=== PATIENT | male | born 1965 | race Caucasian/White ===

== ENCOUNTER 2019-12-05 12:00 | Inpatient (IN) | payer SELFPAY ==
[2019-12-05] MEDS ORDERED: NS 0.9% 1000 ML** 1,000 ML IV ONE (12:07)
--- NOTE | 2019-12-05 12:27 | ED ---
Complex/Multi-Sys Presentation - HPI Summary HPI Summary: Patient is a 54 y/o M presenting to [facility] via EMS with complaints of SOB, chills , syncope, bladder and bowel incontinence, and BLE numbness. He claims that SOB onset suddenly four days ago and has been constant since. He also claims that he has had multiple recent syncopal episodes, noting that they occur every time he stands up and ambulates a few steps. He states that he is currently cold in the room. Patient denies fever, cough, CP, and leg pain but does note some BLE numbness as well as bowel and bladder incontinence recently. PMHx of gout and HTN reported. Patient states that he was unable to take his medications due to insurance issues, which is also the reason why he waited this amount of time to come to ED. Patient states that he has three alcoholic beverages daily. Patient states that he does not get drunk daily and states that his last consumption of alcohol was last night. No Hx of COPD or asthma noted. EMS notes that the patient's HR has been fluctuating during transport. Home medications and allergies are reviewed. - History Of Current Complaint Chief Complaint: EDShortnessOfBreath Time Seen by Provider: 12/05/19 12:06 Hx Obtained From: Patient, EMS Onset/Duration: Lasting Days, Still Present Timing: Days Severity Currently: None - pain denied Associated Signs And Symptoms: Positive: Syncope, SOB, Other - positive - chills , bladder and bowel incontinence, BLE numbness; negative - leg pain. Negative: Cough, Chest Pain, Fever - Allergies/Home Medications Allergies/Adverse Reactions: Allergies Allergy/AdvReac Type Severity Reaction Status Date / Time No Known Allergies Allergy Verified 12/05/19 12:15 Home Medications: Home Medications NK [No Home Medications Reported] 12/05/19 [History Confirmed 12/05/19] PMH/Surg Hx/FS Hx/Imm Hx Cardiovascular History: Reports: Hx Hypertension Musculoskeletal History: Reports: Hx Gout Infectious Disease History: No Infectious Disease History: Denies: Hx Clostridium Difficile, Hx Hepatitis, Hx Human Immunodeficiency Virus (HIV), Hx of Known/Suspected MRSA, Hx Shingles, Hx Tuberculosis, Hx Known/ Suspected VRE, Traveled Outside the [place] in Last 30 Days - Family History Known Family History: Positive: Hypertension - Social History Alcohol Use: Daily Alcohol Amount: vodka -3 drinks a night (6oz each) Substance Use Type: Reports: None Smoking Status (MU): Light Every Day Tobacco Smoker Type: Cigarettes Amount Used/How Often: 1.5 ppd for 30 years Review of Systems Positive: Chills. Negative: Fever Negative: Chest Pain Positive: Shortness Of Breath. Negative: Cough Positive: incontinence - bladder and bowel Negative: Myalgia - leg pain Positive: Numbness - BLE , Syncope All Other Systems Reviewed And Are Negative: Yes Physical Exam - Summary Physical Exam Summary: VITAL SIGNS: Reviewed. GENERAL: Patient is a well-developed and nourished male who is lying comfortable in the stretcher. Patient is not in any acute respiratory distress. He is anxious, shaking, and dishevelled in appearance. HEAD AND FACE: No signs of trauma. No ecchymosis, hematomas or skull depressions. No sinus tenderness. EYES: PERRLA, EOMI x 2, No injected conjunctiva, no nystagmus. EARS: Hearing grossly intact. Ear canals and tympanic membranes are within normal limits. MOUTH: Oropharynx within normal limits. NECK: Supple, trachea is midline, no adenopathy, no JVD, no carotid bruit, no c- spine tenderness, neck with full ROM. CHEST: Symmetric, no tenderness at palpation. LUNGS: Decreased breath sounds bilaterally. No wheezing or crackles. CVS: Regular rate and rhythm, S1 and S2 present, no murmurs or gallops appreciated. ABDOMEN: Soft, non-tender. No signs of distention. No rebound, no guarding, and no masses palpated. Bowel sounds are normal. EXTREMITIES: FROM in all major joints, no edema, no cyanosis or clubbing. NEURO: Alert and oriented x 3. No acute neurological deficits. Speech is normal and follows commands. SKIN: Dry and warm. Triage Information Reviewed: Yes Vital Signs On Initial Exam: Initial Vitals Temp Pulse Resp BP Pulse Ox 97.4 F 91 28 114/76 99 12/05/19 12:03 12/05/19 12:12/05/19 12:12/05/19 12:12/05/19 12:03 Vital Signs Reviewed: Yes Procedures - Sedation Patient Received Moderate/Deep Sedation with Procedure: No Diagnostics - Vital Signs Vital Signs Temp Pulse Resp BP Pulse Ox 12/05/19 12: 97.4 F 91 28 114/76 99 - Laboratory Result Diagrams: 12/06/19 07:32 12/06/19 07:32 Lab Statement: Any lab studies that have been ordered have been reviewed, and results considered in the medical decision making process. - Radiology CXR Radiology Interpretation Completed By: Radiologist Summary of Radiographic Findings: IMPRESSION: NO ACTIVE CARDIOPULMONARY DISEASE. THIS REPORT WAS REVIEWED BY ED PHYSICIAN. - CT CHEST/THORAX CTA CT Interpretation Completed By: Radiologist Summary of CT Findings: IMPRESSION: Patchy areas of ground glass opacities in the right upper lobe, right middle. lobe and right lower lobe suggestive of pneumonitis on the right. Left lung field is. clear. No pleural fluid is identified. No evidence of pulmonary embolus is noted. THIS REPORT WAS REVIEWED BY ED PHYSICIAN. - EKG 1219 Cardiac Rate: NL - rate of 85 BPM EKG Rhythm: Sinus Rhythm Summary of EKG Findings: EKG showed sinus rhythm with rate of 85 BPM, no ST elevations, poor quality EKG due to patient shaking. ED physician has reviewed and interpreted this EKG. Complex Multi-Symp Course/Dx Assessment/Plan: Patient is a 54 y/o M presenting to [facility] via EMS with complaints of SOB, chills, syncope, bladder and bowel incontinence, and BLE numbness. He claims that SOB onset suddenly four days ago and has been constant since. He also claims that he has had multiple recent syncopal episodes, noting that they occur every time he stands up and ambulates a few steps. He states that he is currently cold in the room. Patient denies fever, cough, CP, and leg pain but does note some BLE numbness as well as bowel and bladder incontinence recently. PMHx of gout and HTN reported. Patient states that he was unable to take his medications due to insurance issues, which is also the reason why he waited this amount of time to come to ED. Patient states that he has three alcoholic beverages daily. Patient states that he does not get drunk daily and states that his last consumption of alcohol was last night. No Hx of COPD or asthma noted. EMS notes that the patient's HR has been fluctuating during transport. Home medications and allergies are reviewed. In the ED course the patient was placed in a night monitor, IV access was obtained, IV fluids started. Patient is an alcoholic but he seems to be very nervous and anxios as the patient is slightly hyperventilating and tachycardic. Past medical records reviewed. Blood test w/o a significant abnormality except for slight anemia with a hemoglobin of 10.0 and hematocrit of 28, platelets 133. D-dimer was 426. ABG shows a pH of 7.48, PCO2 less than 20, PO2 136 and O2 sat 99.8. Sodium is 132, chloride 96, carbon dioxide 14, anion gap is 22, lactic acid is 4.6, total bili 1.5, CPK is 274, troponin 0.03, BNP is 510. Urinalysis is negative for UTI. Influenza A and B are negative. Chest x-ray impression: No active cardiopulmonary disease. However, his lactic acid is 4.6, and CRP is 20 , therefore I believe that the patient may be becoming septic. Therefore I started IV fluids 30 ccs per KG, and gave the patient Rocephin and azithromycin. Chest CTA IMPRESSION: Patchy areas of ground glass opacities in the right upper lobe, right middle lobe and right lower lobe suggestive of pneumonitis on the right. Left lung field is clear. No pleural fluid is identified. No evidence of pulmonary embolus is noted. I discuss my physical exam and test results with Dr. Victoria from the hospitalist services and he agrees to admit the patient to his services. The patient is hemodynamically stable alert and oriented x 3. - Diagnoses Provider Diagnoses: Pneumonitis, Elevated troponin, Anemia - Physician Notifications Discussed Care Of Patient With: Nicole Victoria Time Discussed With Above Provider: 12:31 Instructed by Provider To: Other - Patient's case was discussed with Dr. Victoria , Dr. Victoria accepts for admission. Discharge ED - Sign-Out/Discharge Documenting (check all that apply): Patient Departure - admit - Discharge Plan Condition: Stable Disposition: ADMITTED TO [facility] - Billing Disposition and Condition Condition: STABLE Disposition: Admitted to [facility] - Attestation Statements Document Initiated by Scribe: Yes Documenting Scribe: ALDEN ABEBE Provider For Whom Nargis is Documenting (Include Credential): MELODY FRANCO MD Scribe Attestation: ALDEN Peterson, scribed for MELODY FRANCO MD on 12/06/19 at 0935. Scribe Documentation Reviewed: Yes Provider Attestation: The documentation as recorded by the selvinibALDEN ohara accurately reflects the service I personally performed and the decisions made by me, MELODY FRANCO MD Status of Scribe Document: Viewed
[2019-12-05 12:35] LABS: ABS Lymphocytes 1.2 10^3/ul (1.0-4.8); ABS Monocytes 0.5 10^3/ul (0-0.8); ABS Neutrophils 2.8 10^3/ul (1.5-7.7); Eosinophil % 0.1 %; Hematocrit 28 % (42-52); Lymphocyte % 25.9 %; Mean Corpuscular HGB Conc 36 g/dL (31-36); Mean Corpuscular Hemoglobin 32 pg (27-31); Mean Corpuscular Volume 90 fL (80-94); Mean Platelet Volume 7.1 fL (7.4-10.4); Nucleated Red Blood Cells % 0.3; Platelet Count 133 10^3/uL (150-450); Red Blood Count 3.12 10^6 /uL (4.18-5.48); Red Cell Distribution Width 14 % (10-15); White Blood Count 4.6 10^3/uL (3.5-10.8)
[2019-12-05 12:55] LABS: Albumin 3.7 g/dL (3.2-5.2); Albumin/Globulin Ratio 1.4 (1-3); BUN/Creatinine Ratio 24.4 (8-20); C Reactive Protein 22.71 mg/L (<8.01); EGFR African American 106.8 (>60); EGFR Non-African American 88.3 (>60); Globulin 2.7 g/dL (2-4); Potassium 4.1 mmol/L (3.5-5.0); Total Bilirubin 1.5 mg/dL (0.2-1.0); Total Protein 6.4 g/dL (6.4-8.9)
[2019-12-05 12:58] LABS: CKMB ng/mL 20.2 ng/mL (0.6-6.3); Troponin I 0.03 ng/mL (<0.03)
[2019-12-05] MEDS ORDERED: Iohexol 350* (CONTRAST) 500 ML MDV IV ONE (13:12)
[2019-12-05 13:39] LABS: Urine Appearance Clear; Urine Bilirubin Negative (Negative); Urine Blood 2+ (Negative); Urine Color Amber; Urine Glucose Negative (Negative); Urine Ketones 2+ (Negative); Urine Nitrite Negative (Negative); Urine Protein Negative (Negative); Urine Urobilinogen Positive (Negative)
[2019-12-05 13:48] LABS: Urine Bacteria Absent (Absent); Urine Red Blood Cell 1+(3-5/hpf) (Absent); Urine White Blood Cell Trace(0-5/hpf) (Absent)
[2019-12-05 14:00] LABS: Influenza A Molecular Negative (Negative); Influenza B Molecular Negative (Negative)
[2019-12-05] MEDS ORDERED: cefTRIAXone(*) 1 GM in NS 0.9% 50 ML* 50 ML IVPB ONE (14:14)
[2019-12-05] MEDS ORDERED: LORazepam INJ* 2 MG/ML 1 ML VIAL IV PUSH ONE (14:18)
[2019-12-05] MEDS ORDERED: Lorazepam PYXIS KEY PRN (14:18)
[2019-12-05] MEDS ORDERED: NS 0.9% 1000 ML** 1,500 ML IV ONE (14:30)
[2019-12-05] MEDS ORDERED: Thiamine INJ* 100 MG/ML 2 ML VIAL IM ONE (17:11)
[2019-12-05] MEDS ORDERED: Acetaminophen TAB* 325 MG PO PRN (17:11)
[2019-12-05 17:42] LABS: BUN/Creatinine Ratio 25.6 (8-20); Blood Urea Nitrogen 21 mg/dL (6-24); Calcium 8.8 mg/dL (8.6-10.3); Chloride 97 mmol/L (101-111); EGFR African American 118.9 (>60); EGFR Non-African American 98.3 (>60); Glucose 85 mg/dL (70-100); Potassium 3.6 mmol/L (3.5-5.0); Sodium 131 mmol/L (135-145)
[2019-12-05 17:47] LABS: Anion Gap 20 mmol/L (2-11); CO2 Carbon Dioxide 14 mmol/L (22-32); Troponin I 0.03 ng/mL (<0.03)
[2019-12-05] MEDS ORDERED: Thiamine IV 100 MG in NS 0.9% 50 ML Q24H IV ONE (18:00)
[2019-12-05] MEDS ORDERED: LORazepam TAB(*) 1 MG PO SCH (18:00)
[2019-12-05 18:06] LABS: Magnesium 0.9 mg/dL (1.9-2.7)
[2019-12-05] MEDS ORDERED: Magnesium Sulf 4 GM/100 ML IV* 4,000 MG/100 ML BAG IVPB ONE (18:09)
[2019-12-05 18:18] LABS: TSH (Thyroid Stimulating Horm) 4.71 mcIU/mL (0.34-5.60)
[2019-12-05 20:36] LABS: Troponin I 0.03 ng/mL (<0.03)
[2019-12-05] MEDS: Multivitamins/Minerals TAB PO SCH (20:49)
[2019-12-05] MEDS: Folic Acid TAB* 1 MG PO SCH (20:49)
[2019-12-05] MEDS: Sodium Bicarbonate (ANTACID)* 650 MG TAB PO SCH (20:50)
--- NOTE | 2019-12-05 23:44 | HP ---
CC: Dr. Ness * HISTORY AND PHYSICAL: DATE OF ADMISSION: 12/05/19 PROVIDER: Meredith Farris NP. PRIMARY CARE PROVIDER: Dr. Ness. ATTENDING PHYSICIAN WHILE IN THE HOSPITAL: Dr. Nicole Victoria * (dictated by Meredith Farris NP). CHIEF COMPLAINT: 1. Shortness of breath. 2. Dizziness. 3. Syncope. HISTORY OF PRESENT ILLNESS: Mr. Gutierrez is a 54-year-old male with a past medical history significant for alcohol abuse, gout, and hypertension who presented to the emergency room with complaints of shortness of breath, dizziness, and syncopal episodes. The patient reports "when I walk I can only take 2 steps. I have difficulty breathing, I become dizzy and I fall to the floor." The patient reports that this has been going on for the past 4 days. He does report "black out" episodes with walking only a few steps for the past 3 to 4 days. This is associated with dizziness prior to his collapsing to the floor. He does report that he has hit his head multiple times in the past 4 days due to his syncopal episodes. The patient does report that he remembers falling, but is not sure why it happens. The patient does report that he drinks 3 to 4 vodka drinks per day with 3 to 4 shots per drink of vodka. He does report that he does become tremulous when stopping drinking, but denies ever having a seizure related to withdrawal from alcohol. While in the emergency room, the patient had routine lab work drawn. He was found to have metabolic acidosis and respiratory alkalosis with an elevated lactic acid of 4.6 and magnesium of 0.9, elevated total bilirubin of 1.50. Due to these findings, Hospital Medicine was asked to see and evaluate him for admission. He also had an elevated D-dimer of 426. He had a CT of the chest. This was negative for pulmonary embolism. PAST MEDICAL HISTORY: Significant for: 1. Alcohol abuse. 2. History of gout. 3. History of hypertension, not currently on medication due to no insurance, unknown type of medicines he has taken in the past. PAST SURGICAL HISTORY: Left hand surgery. HOME MEDICATIONS: None. ALLERGIES: No known drug allergies. FAMILY HISTORY: No reported history of coronary artery disease, diabetes, or cancer in the family. SOCIAL HISTORY: The patient reports he smokes 1 pack of cigarettes per week. He drinks 3 to 4 vodka and water drinks with 3 to 4 shots of vodka per drink daily. He is single. Surrogate decision maker in the event he is unable to make his own decisions is his parents. He is a full code. REVIEW OF SYSTEMS: The patient denies any fever, chills, unintended weight loss , chest pain or edema, cough, hemoptysis. He does report shortness of breath. He does report dizziness with standing and walking and syncopal episodes. He denies any gross hematuria, dysuria, focal weakness, sensory loss. He denies any visual complaints, dysphagia, arthralgias, myalgias, rashes, lesions, open sores, psychosis, or anxiety. PHYSICAL EXAMINATION GENERAL: At this time, Mr. Gutierrez is a 54-year-old male. He is alert and oriented, resting on the stretcher in the emergency room. He does have fine tremors noted in the bilateral hands. VITAL SIGNS: Blood pressure 158/93, heart rate 78, respirations 20, O2 saturation 97% on room air, temperature 97.4. HEENT: Head is atraumatic, normocephalic. Eyes: EOMs are intact. Sclerae anicteric and not pale. Oral mucosa is moist. NECK: Supple. No spine tenderness. Has full range of motion of his neck. LUNGS: Diminished with crackles in the right base. ABDOMEN: Soft and nontender. Bowel sounds are present x4. EXTREMITIES: He is able to move all 4 extremities. There is no clubbing or cyanosis. NEUROLOGIC: He is awake, alert, oriented x3. His speech is clear. His thought process is intact. [employer] are equal. Smile is equal. Tongue is midline. There are no gross focal deficits. SKIN: He has ecchymosis noted in the bilateral knees. He has purpura, rash noted to bilateral legs and bilateral arms. It has been present for 1.5 years per the patient. DIAGNOSTIC STUDIES/LAB DATA: WBCs are 4.6, RBCs 3.12, hemoglobin 10.0, hematocrit is 28, platelet count 133. APTT was 31.5, D-dimer 426. ABG; pH is 7.48, pCO2 is less than 20, pO2 is 136, HCO3 is 17.2, O2 saturation 99.8%, base excess is 9.9 on 4 L nasal cannula. Initial sodium is 132, potassium 4.1, chloride 96, carbon dioxide is 14, anion gap is 22, BUN is 22, creatinine 0.90, glucose is 88. Lactic acid was initially at 4.6, repeat is 1.4, magnesium is 0.9 , total bilirubin 1.50, ASTs are 22, ALTs are 8, alkaline phosphatase is 44, total CK is 274, CK-MB is 20.2. Troponin is 0.03. C-reactive protein is 22.71. BNP was 510. TSH was 4.71. Urine: 2+ ketones, 2+ blood, nitrites and bilirubin were negative. Urobilinogen was positive. Leukocyte esterase is negative. Wbc's is trace, RBC's 1+. Bacteria is absent. Hyaline casts are present. He had a serum alcohol of 34. Flu A and B were both negative. He had a chest x-ray. Radiologist impression: No active cardiopulmonary disease. He had a CT of the chest. No evidence of pulmonary embolism is noted. Patchy areas of ground glass opacity is on the right upper lobe, middle lobe, and right lower lobe suggestive of pneumonitis on the right. Left lung is clear. He had a CT of the brain that showed no acute intracranial abnormality. He had an electrocardiogram. EKG shows T-wave inversions in lead III, V2, V3. He does have some ST depression in V4, and lead II and has T-wave inversions in aVF. ASSESSMENT AND PLAN: Mr. Gutierrez is a 54-year-old male with a past medical history significant for alcohol abuse, gout and hypertension who presented to the emergency room with complaints of shortness of breath, dizziness, and syncopal episodes for the last 4 days. He will be admitted under observation for: 1. Shortness of breath. At this time, it is unclear of his reason for underlying shortness of breath. I suspect this could be related to cardiac abnormality. The patient currently denies any cough. He denies any fever. He denies any congestion or rhinorrhea. The patient has been afebrile. He did have a chest x-ray that showed concern for right pneumonitis, but given the patient has no white count, no fever, no cough, and no congestion it is unlikely that he has pneumonitis. I suspect that his underlying shortness of breath could be related to decreased cardiac function, possibly alcohol induced cardiomyopathy. The patient does have a mildly elevated troponin at 0.03 that has been consistent x2. They will continue to trend his troponin. I will get a transthoracic echocardiogram to evaluate the heart function and ejection fraction as well as valvular function to rule out any severe aortic stenosis. The patient will be monitored on telemetry overnight. At this time, I am going to hold off on continuing the antibiotics as the patient is afebrile. He has no cough, no congestion and shortness of breath is only associated with standing and walking. The patient did have a CT of the chest in the emergency room for an elevated D- dimer, which was negative for pulmonary embolism. 2. Syncope. The patient does report that he has had multiple syncopal episodes over the past 4 days. The patient reports that if he stands, he becomes dizzy and significantly short of breath after taking 2 steps and has "black out episodes." I will get a CT of the brain to rule out any acute intracranial pathology. I will also get a transthoracic echocardiogram to evaluate his heart function as a cause of his syncopal episodes. We will monitor him on telemetry overnight. 3. Elevated troponins. I suspect his troponin could be elevated due to demand ischemia. As the patient currently has had no chest pain, he has had no chest pain throughout all these episodes. Again, we will get a transthoracic echocardiogram to evaluate the heart function and assess for valve abnormalities. 4. Metabolic acidosis. The patient does have mild metabolic acidosis as well as respiratory alkalosis for which he is trying to compensate for his metabolic acidosis. I suspect this is probably related to his alcohol abuse. I will start him on sodium bicarb 650 mg t.i.d. We will repeat a BMP in the a.m. We will monitor him on telemetry overnight. 5. Hypomagnesium. The patient has magnesium level of 0.9. I suspect this is related to his underlying alcohol abuse. I will give him 4 g of magnesium, repeat the magnesium level in the a.m. 6. Anemia. The patient does have some mild anemia. Again, I suspect this is related to his alcohol abuse. I will add on iron studies. We will continue to repeat the CBC in the a.m. 7. Thrombocytopenia. The patient does have a platelet count of 133. Again, I suspect this is related to his underlying alcohol abuse. 8. Elevated Lactic acid. The patient at this time does not appear to be septic.. He does not have elevated wbc's, tachycardia or hypotension. Chest x ray was concerning for pneumonitis but the patient does not have a fever, cough, congestion or rhinorrhea. I suspect that his his lactic acid is related to tremors and underlying . 9. FEN: He can have a regular diet. 10. Code status: He is a full code. 11. DVT prophylaxis: I will place him on SCDs for DVT prophylaxis. TIME SPENT: Time spent on this admission was 60 minutes, greater than half that time was spent at the bedside reviewing events leading thus far to his hospitalization, performing physical exam, and reviewing my plan of care. I have discussed this with my attending, Dr. Nicole Victoria, she is in agreement with my plan. MEREDITH FARRIS, RYAN [id number]/CPS #: [id number] CARLENE
[2019-12-06 08:09] LABS: ABS Lymphocytes 0.9 10^3/ul (1.0-4.8); ABS Monocytes 0.3 10^3/ul (0-0.8); ABS Neutrophils 2.1 10^3/ul (1.5-7.7); Eosinophil % 0.2 %; Hematocrit 24 % (42-52); Hemoglobin 8.6 g/dL (14.0-18.0); Lymphocyte % 28.3 %; Mean Corpuscular HGB Conc 36 g/dL (31-36); Mean Corpuscular Hemoglobin 32 pg (27-31); Mean Corpuscular Volume 89 fL (80-94); Mean Platelet Volume 7.4 fL (7.4-10.4); Nucleated Red Blood Cells % 0.3; Platelet Count 104 10^3/uL (150-450); Red Blood Count 2.72 10^6 /uL (4.18-5.48); Red Cell Distribution Width 14 % (10-15); White Blood Count 3.3 10^3/uL (3.5-10.8)
[2019-12-06 08:26] LABS: BUN/Creatinine Ratio 30.1 (8-20); Calcium 8.6 mg/dL (8.6-10.3); EGFR African American 117.3 (>60); EGFR Non-African American 96.9 (>60); HDL Cholesterol 36.3 mg/dL; Magnesium 1.8 mg/dL (1.9-2.7); Potassium 3.3 mmol/L (3.5-5.0)
[2019-12-06 08:56] LABS: Ferritin 255.8 ng/mL (24-336)
[2019-12-06 09:00] LABS: Folate 8.23 ng/mL (>3.99)
[2019-12-06] MEDS ORDERED: Aspirin EC TAB* 81 MG TAB.EC PO SCH (09:00)
[2019-12-06] MEDS ORDERED: Thiamine TAB* 100 MG TAB PO SCH (09:00)
[2019-12-06] MEDS ORDERED: Potassium Chlor TAB* 20 MEQ TAB.ER PO ONE (09:01)
[2019-12-06] MEDS: Folic Acid TAB* 1 MG PO SCH (09:10)
[2019-12-06] MEDS: Multivitamins/Minerals TAB PO SCH (09:10)
[2019-12-06] MEDS: Sodium Bicarbonate (ANTACID)* 650 MG TAB PO SCH ×3 (09:10→21:22)
--- NOTE | 2019-12-06 09:42 | ECHO ---
*[facility]* [place] [address] Fax #: [phone] Transthoracic Echocardiogram Patient: Forrest Gutierrez : 1965 Study Date: 12/06/2019 Age: 54 Gender: M HR: 66 bpm Height: 68 in /172.7 cm BSA: 1.59 m^2 Weight: 109.8 lb /49.9 kg BMI: 16.7 kg/m^2 *Key Punch Teacher: * Miguelina Hanley [facility] *Referring Physician: * Meredith Farris *Reading Physician: * Yvette Oh MD Indications: Abnormal EKG. Syncope. SOB. History: Risk factors: Hypertension. ETOH use. Conclusions Summary: - Left ventricle: The cavity size is below normal. Wall thickness is moderately increased. Doppler parameters are consistent with abnormal left ventricular relaxation (grade 1 diastolic dysfunction). The outflow tract shows mild obstruction and a velocity flow profile with aliasing and increased velocity, suggestive of obstruction. Chordal systolic anterior motion of the mitral valve demonstrated on 2D echocardiogram. - Right ventricle: The cavity size is moderately dilated. Systolic function is moderately reduced. - Mitral valve: There is mild to moderate regurgitation. - Aortic valve: Cusp separation is normal. There is a small, spenrical, calcified, mobile mass on the left coronary cusp, consistent with sclerotic/marantic lesion. There is trace regurgitation. - Tricuspid valve: There is moderate-severe regurgitation. - Pulmonary arteries: Systolic pressure is moderately to severely increased. The peak pressure during systole by Doppler is 55.0 mm Hg. - No prior echocardiogram to compare. Study data: Transthoracic echocardiogram. Procedure: Transthoracic echocardiography was performed. Image quality was good. Complete 2D, spectral Doppler, and color flow Doppler. Location: Bedside. Patient status: Inpatient. Patient room number: 442-01. Rhythm: Normal sinus rhythm. Findings Left ventricle: The cavity size is below normal. Wall thickness is moderately increased. Systolic function is normal. The estimated ejection fraction is 55-60%. Wall motion is normal; there are no regional wall motion abnormalities. The outflow tract shows mild obstruction and a velocity flow profile with aliasing and increased velocity, suggestive of obstruction. Chordal systolic anterior motion of the mitral valve demonstrated on 2D echocardiogram. The peak velocity at the septal base measured 2.1 m/s. Doppler parameters are consistent with abnormal left ventricular relaxation (grade 1 diastolic dysfunction). Right ventricle: The cavity size is moderately dilated. Systolic function is moderately reduced. Systolic pressure is moderately to severely increased. Left atrium: The atrium is normal in size. Right atrium: The atrium is normal in size. Mitral valve: The leaflets are mildly thickened. There is systolic anterior motion of the chordal structures. There is no evidence of stenosis. There is mild to moderate regurgitation. Aortic valve: The valve is trileaflet. The leaflets are mildly thickened. Cusp separation is normal. There is a small, calcified, mobile mass on the left coronary cusp. There is no evidence of stenosis. There is trace regurgitation. Tricuspid valve: The leaflets are normal thickness. There is no evidence of stenosis. There is moderate-severe regurgitation. Pulmonic valve: The leaflets are normal thickness. There is no evidence of stenosis. There is trace regurgitation. Aorta: Aortic root: The aortic root is mildly dilated. Ascending aorta: The ascending aorta is appears normal. Aortic arch: The aortic arch is appears normal. Pericardium: There is no significant pericardial effusion. Pulmonary arteries: The main pulmonary artery is normal-sized. Systolic pressure is moderately to severely increased. Systemic veins: Inferior vena cava: The vessel is normal in size. There is (>= 50%) respiratory change in the IVC dimension. Measurements Left ventricle Value Ref Aortic valve Value Ref TANA, LAX (L) 3.7 cm 4.2 - 5.8 Yanna diam, ED 2.3 cm ----- ESD, LAX 2.6 cm 2.5 - 4.0 Peak v, S 2.6 m/sec ----- FS, LAX 29 % 25 - 43 VTI, S 47.1 cm ----- PW, ED, LAX (H) 1.3 cm 0.6 - 1.0 Mean grad, S 12.0 mm Hg ----- FS 29 % 25 - 43 Peak grad, S 27.0 mm Hg ----- Mid-wall FS 9 % LVOT/AV, VTI ratio 0.76 ----- PW, ED (H) 1.3 cm 0.6 - 1.0 E', lat yanna, TDI (L) 8.8 cm/sec >=10.0 Mitral valve Value Ref E/e', lat yanna, 7 Peak E 0.57 m/sec ----- TDI Peak A 0.74 m/sec ----- E', med yanna, TDI (L) 5.1 cm/sec >=7.0 Decel time 222 ms --- -- E/e', med yanna, 11 Peak E/A ratio 0.8 ----- TDI E', avg, TDI 7.0 cm/sec Pulmonic valve Value Ref E/e', avg, TDI 8 <=14 Peak v, S 0.85 m/sec --- -- Peak grad, S 3.0 mm Hg ----- LVOT Value Ref Peak phuc, S 1.81 m/sec Tricuspid valve Value Ref VTI, S 36.0 cm TR peak v (H) 3.7 m/sec <=2.8 Peak grad, S 13 mm Hg Peak RV-RA grad, S 55 mm Hg ----- Mean grad, S 8 mm Hg Aortic root Value Ref Ventricular septum Value Ref Root diam 3.6 cm <3.8 IVS, ED (H) 1.5 cm 0.6 - 1.0 Ascending aorta Value Ref Right ventricle Value Ref AAo AP diam, S 3.5 cm ----- TANA, LAX 4.2 cm TANA minor ax, A4C (H) 4.2 cm 1.9 - 3.5 Aortic arch Value Ref mid Arch diam 2.5 cm ----- Pressure, S 58 mm Hg Decending aorta Value Ref Left atrium Value Ref Jorge peak phuc 0.83 m/sec ----- AP dim, ES 3.10 cm 3.00 - 4.00 Pulmonary artery Value Ref ML dim, A4C 4.0 cm Pressure, S 55.0 mm Hg ----- SI dim, A4C 4.7 cm Vol/bsa, ES, 1-p 18 ml/m^2 12 - 37 Inferior vena cava Value Ref A4C Diam 1.2 cm ----- Vol/bsa, ES, A/L 25 ml/m^2 16 - 34 Right atrium Value Ref SI dim, ES 5.1 cm 3.4 - 5.3 ML dim, ES, A4C 3.5 cm 2.6 - 4.4 Estimated RAP 3 mm Hg Legend: (L) and (H) krzysztof values outside specified reference range. Prepared and electronically signed by Yvette Oh MD 12/06/2019 09:41
[2019-12-06] MEDS ORDERED: NS 0.9% 500 ML* 500 ML IV ONE ×2 (09:43→19:47)
[2019-12-06] MEDS ORDERED: Magnesium Oxide TAB* 400 MG PO SCH (10:00)
--- NOTE | 2019-12-06 15:13 | PN ---
Subjective Date of Service: 12/06/19 Interval History: Mr. Gutierrez is feeling fine today. He has not yet been OOB, so he is not sure how he feels on his feet. He reports that all of his syncopal episodes at home have occurred after getting up, after walking about 3 steps. No tremors or hallucinations. Good appetite. Denies CP, SOB, dizziness. Nursing reported hypotension this morning with SBP in the 70s, resolved with IVF. Family History: Unchanged from Admission Social History: Unchanged from Admission Past Medical History: Unchanged from Admission Objective Active Medications: Acetaminophen (Tylenol Tab*) 650 mg PO Q6H PRN MILD PAIN or TEMP > 100.4 Aspirin (Aspirin Ec Tab*) 81 mg PO DAILY [facility] Folic Acid (Folvite Tab*) 1 mg PO DAILY [facility] Lorazepam (Ativan Tab(*)) 0 - [address] [facility] PROTOCOL [facility]IG[facility]; Protocol Magnesium Oxide (Magox 400 Tab*) 400 mg PO DAILY [facility] Multivitamins/Minerals (Theragran/Minerals Tab*) 1 tab PO DAILY [facility] Sodium Bicarbonate (Sodium Bicarbonate (Antacid)*) 650 mg PO TID [facility] Thiamine HCl (Vitamin B-1 Tab*) 100 mg PO DAILY [facility] Vital Signs - 8 hr 12/06/19 12/06/19 12/06/19 09:19 09:35 11:15 Temperature 98.8 F 97.6 F 99 F Pulse Rate 63 90 73 Respiratory 20 18 16 Rate Blood Pressure 122/76 77/46 110/63 (mmHg) O2 Sat by Pulse 99 98 98 Oximetry 12/06/19 13:25 Temperature 97.7 F Pulse Rate 98 Respiratory 18 Rate Blood Pressure 122/65 (mmHg) O2 Sat by Pulse 99 Oximetry Oxygen Devices in Use Now: None Appearance: Middle-aged male lying in bed in NAD Ears/Nose/Mouth/Throat: Mucous Membranes Moist Neck: NL Appearance and Movements; NL JVP, Trachea Midline Respiratory: Symmetrical Chest Expansion and Respiratory Effort, Clear to Auscultation Cardiovascular: RRR, - - Grade 2/6 systolic murmur Extremities: No Edema Neurological: Alert and Oriented x 3 Lines/Tubes/Other Access: Clean, Dry and Intact Peripheral IV Nutrition: Taking PO's Result Diagrams: 12/06/19 07:32 12/06/19 07:32 Assess/Plan/Problems-Billing Assessment: Mr. Gutierrez is a 54 yo M with PMH of alcohol abuse, gout, HTN; presented to the ED with c/o SOB and syncope and was found to have metabolic acidosis and elevated troponin. - Patient Problems (1) Syncope Code(s): R55 - SYNCOPE AND COLLAPSE Comment: - Patient reports recurrent syncope after standing and taking 2-3 steps and SOB for ~4 days prior to admission - Tele reveals NSR to sinus tach - Orthostatic VS to be obtained today - Echo reveals EF 55-60%, diastolic dysfunction, findings consistent with obstructive hypertrophic cardiomyopathy, mod-severe TR, mild-mod MR, mod-severe pHTN - Appreciate Cardiology consult - Would benefit from BB for rate control, but at this point BP will not tolerate - Any degree of dehydration will likely exacerbate symptoms - Patient should not ambulate independently d/t risk of recurrent syncope (2) Metabolic acidosis Code(s): E87.2 - ACIDOSIS Comment: - Present on admission, now improving - Suspect secondary to ETOH abuse - Recheck BMP in AM - Continue sodium bicarb (3) Anemia Code(s): D64.9 - ANEMIA, UNSPECIFIED Comment: - Normocytic - Unclear etiology - Normal iron studies and folate; B12 pending - Check stool occult (4) Alcohol withdrawal Code(s): F10.239 - ALCOHOL DEPENDENCE WITH WITHDRAWAL, UNSPECIFIED Comment: - No symptoms at this point, but suspect he will become symptomatic in the next 24 hours - Social work following - WAM per protocol (5) Elevated troponin Code(s): R79.89 - OTHER SPECIFIED ABNORMAL FINDINGS OF BLOOD CHEMISTRY Comment : - Suspect demand ischemia in the setting of cardiomyopathy (6) Thrombocytopenia Code(s): D69.6 - THROMBOCYTOPENIA, UNSPECIFIED Comment: - Chronic, stable without evidence of bleeding - Likely secondary to ETOH abuse (7) Lactic acidosis Code(s): E87.2 - ACIDOSIS Comment: - Lactic elevated on admission, resolved with IVF - No evidence of infection, likely secondary to dehydration (8) Hypomagnesemia Code(s): E83.42 - HYPOMAGNESEMIA Comment: - Severe on admission, now improved - Start mag oxide daily (9) DVT prophylaxis Code(s): Z29.9 - ENCOUNTER FOR PROPHYLACTIC MEASURES, UNSPECIFIED Comment: - SCDs (10) Full code status Code(s): Z78.9 - OTHER SPECIFIED HEALTH STATUS Status and Disposition: Inpatient. Anticipate d/c home when medically stable. Attending: Shaye Chen
[2019-12-06] MEDS ORDERED: Loperamide CAP* 2 MG PO PRN (16:50)
[2019-12-07 05:52] LABS: Calcium 8.5 mg/dL (8.6-10.3); EGFR Non-African American 112.4 (>60); Magnesium 1.4 mg/dL (1.9-2.7); Potassium 3.4 mmol/L (3.5-5.0)
[2019-12-07 07:27] VITALS: BP 128/83
[2019-12-07 07:47] LABS: ABS Lymphocytes 1.5 10^3/ul (1.0-4.8); ABS Monocytes 0.4 10^3/ul (0-0.8); ABS Neutrophils 2.1 10^3/ul (1.5-7.7); Eosinophil % 0.5 %; Hematocrit 22 % (42-52); Hemoglobin 8.3 g/dL (14.0-18.0); Lymphocyte % 37.7 %; Mean Corpuscular HGB Conc 38 g/dL (31-36); Mean Corpuscular Hemoglobin 33 pg (27-31); Mean Corpuscular Volume 89 fL (80-94); Mean Platelet Volume 7.4 fL (7.4-10.4); Nucleated Red Blood Cells % 0.3; Platelet Count 94 10^3/uL (150-450); Red Blood Count 2.51 10^6 /uL (4.18-5.48); Red Cell Distribution Width 14 % (10-15); White Blood Count 4.1 10^3/uL (3.5-10.8)
[2019-12-07] MEDS ORDERED: Magnesium Sulfate 2 GM IV* 2 GM/50 ML BAG IVPB ONE (08:41)
[2019-12-07] MEDS ORDERED: Potassium Chlor TAB* 20 MEQ TAB.ER PO ONE (08:45)
[2019-12-07] MEDS ORDERED: KCL 20 MEQ/100 ML IVPREMIX* 20 MEQ/100 ML BAG IV ONE (08:45)
--- NOTE | 2019-12-08 12:01 | DS ---
CC: Dr. Ness * DISCHARGE SUMMARY: DATE OF ADMISSION: 12/05/19 DATE OF DISCHARGE: 12/07/19, against medical advice. PROVIDER: GINGER Prajapati. ATTENDING PHYSICIAN WHILE IN THE HOSPITAL: Dr. Shaye Castle * (dictated by GINGER Prajapati). PRIMARY CARE PROVIDER: Dr. Ness. PRIMARY DIAGNOSES: Syncope, possibly related to hypertrophic cardiomyopathy as well as combination of severe pulmonary hypertension and tricuspid regurgitation. SECONDARY DIAGNOSES: 1. Alcohol use disorder. 2. History of gout. 3. Hypertension, not currently taking medications due to uninsured status. PERTINENT STUDIES WHILE IN THE HOSPITAL: Transthoracic echocardiogram on , demonstrating grade 1 diastolic dysfunction with mild obstruction of outflow tract suggestive of obstruction. Mildly dilated right ventricle with moderate regurgitation of mitral valve and [id number] regurgitation of tricuspid valve as well as [id number] pulmonary artery hypertension. CT of the brain 12/05/19, impression: No acute intracranial abnormality. CTA of the chest on 12/05/19: No evidence of pulmonary embolism is noted. Patchy areas of ground-glass opacities in the right upper lobe, right middle lobe, and right lower lobe suspicious for pneumonitis of the right lung. Left lung field is clear. No pleural fluid is identified. Chest x-ray of 12/05/19, no active cardiopulmonary disease. HISTORY OF PRESENT ILLNESS/HOSPITAL COURSE: Mr. Gutierrez is a 54-year-old white male with past medical history significant for alcohol abuse, gout and hypertension, who presented to the emergency department complaining of shortness of breath and syncopal episodes. The patient was walking just a few steps and syncopizing. He had a transthoracic echocardiogram, which demonstrated outflow tract obstruction as well as severe valvular abnormalities as described above. Considering the patient is likely significantly dehydrated in the setting of his alcohol use, this is likely exacerbated by these findings. Cardiology was consulted and had not yet had an opportunity to see the patient by the time that he requested to leave against medical advice. The patient additionally had a metabolic acidosis, which was improved by the day of discharge. This is likely due to his alcohol abuse. However, this may be an additional contributing factor to his syncope. The patient did have an elevated alcohol level at admission, serum alcohol 34 and by the date of him leaving against medical advice, he had not yet begun scoring on our withdrawal for alcohol WAM assessment. Additionally, the patient did have minimally elevated troponin to 0.03, which is likely an ischemic demand; however, he had not been able to be assessed by our hoop punch and coiler operator helper and could use for further evaluation. On the morning of 12/07/19, the patient requested to leave the hospital. I discussed the alternatives of staying in the hospital to continue monitoring, continue IV fluids, and social work to evaluate him to set up Medicaid as well as for the hoop punch and coiler operator helper to evaluate him and intermittently to determine his plan of care. I explained that the risks of him leaving without continuing this plan with further syncope which could lead to disability or cardiac . I believe that the the patient was clinically sober at the time of his request to leaving against medical advice and was free of distracting injury and had the capacity to make the decision to leave against medical advice. The patient understood these risks of leaving the hospital against medical advice and declined physical exam before continuing to request to leave. He told me that he was worried that he was not able to pay for anything that was going to be done here and when explained that the plan was for him to get signed up Medicaid while he was in the hospital, which could be back paid up to 3 months, he still wished to leave the hospital. The patient presented with hypomagnesemia with the magnesium to 0.9, which did improve to 1.8, down trend again to 1.4 by the date of discharge and IV magnesium was ordered; however, the patient was refusing this prior to discharge. This is likely secondary to poor p.o. intake in the setting of alcohol use, so potentially could have been contributing to his syncope as well. DISCHARGE PLAN: The patient is leaving against medical advice. I suggested that he has a close medical followup with primary care provider and outpatient cardiology evaluation if possible. Obviously, abstinence from alcohol was recommended. Because the hoop punch and coiler operator helper was not able to evaluate him, I could not make any further medication recommendations and therefore he was discharged without any medications for this presentation. He should start some over-the- counter supplementations of his potassium and magnesium; however, this was not able to be repleted on his day of discharge due to him leaving against the hospital stay and he should have a repeat BNP and magnesium as soon as possible on an outpatient followup. Repeat LFTs will be of benefit as the patient did have minimally elevated bilirubin during this hospitalization to 1.5, which should be followed. CONDITION ON DISCHARGE: Guarded. DISPOSITION: Against medical advice to home. DISCHARGE MEDICATIONS: None. Continued home medications: None. GINGER PRAJAPATI [id number]/[facility] #: [id number] MTDGary
== END 2019-12-07 09:00 | disposition left against medical advice (07) | DRG 315 ==
LOC: ED 12:00 → MEDTELE 18:05
PROVIDERS: ADMIT Hospitalist; ATTEND Internal Medicine
DX: I42.2 Other hypertrophic cardiomyopathy (principal); E87.2 Acidosis; I24.8 Other forms of acute ischemic heart disease; F10.239 Alcohol dependence with withdrawal, unspecified; I27.20 Pulmonary hypertension, unspecified; R55 Syncope and collapse; I08.1 Rheumatic disorders of both mitral and tricuspid valves; Z53.29 Procedure and treatment not carried out because of patient's decision for other reasons; M10.9 Gout, unspecified; I10 Essential (primary) hypertension; E86.0 Dehydration; E83.42 Hypomagnesemia; F17.210 Nicotine dependence, cigarettes, uncomplicated; D69.6 Thrombocytopenia, unspecified; I95.9 Hypotension, unspecified; Z28.21 Immunization not carried out because of patient refusal; Z79.899 Other long term (current) drug therapy
CPT/HCPCS: 36415; 70450; 71045; 71275; 80048; 80053; 80061; 80320; 81003; 81015; 82272; 82550; 82553; 82607; 82728; 82746; 82803; 83540; 83550; 83605; 83735; 83880; 84443; 84484; 85025; 85060; 85379; 85730; 86140; 87040; 87086; 87899; 93005; 93306; 96365; 99284; A9270-GY; G0480; J0696; J3411; J3475; Q9967

== ENCOUNTER 2022-03-10 06:11 | Inpatient (IN) ==
[2022-03-10] MEDS ORDERED: Thiamine 100 MG/ML 2 ml VIAL 100 MG, Folic Acid IV 1 MG, Multiple Vitamin IV ADULT 10 M... IV ONE (06:33)
[2022-03-10] MEDS ORDERED: Thiamine 100 MG/ML 2 ml VIAL (200 mg) ONE (06:44)
[2022-03-10 07:09] LABS: ABS Lymphocytes 0.8 10^3/ul (1.0-4.8); ABS Monocytes 0.3 10^3/ul (0-0.8); Eosinophil % 0.2 %; Hematocrit 24 % (42-52); Hemoglobin 8.7 g/dL (14.0-18.0); Lymphocyte % 13.4 %; Mean Corpuscular HGB Conc 36 g/dL (31-36); Mean Corpuscular Hemoglobin 34 pg (27-31); Mean Corpuscular Volume 94 fL (80-94); Nucleated Red Blood Cells % 0.1; Platelet Count 162 10^3/uL (150-450); Red Blood Count 2.57 10^6 /uL (4.18-5.48); Red Cell Distribution Width 16 % (10-15); White Blood Count 6.2 10^3/uL (3.5-10.8)
[2022-03-10] MEDS ORDERED: Ondansetron 4 mg VIAL 2 MG/ML 2 ml VIAL IV ONE (07:19)
[2022-03-10 07:21] LABS: Ammonia 39 mcmol/L (16-53)
[2022-03-10 07:23] LABS: Activated Partial Thrombo Time 28.1 seconds (26.0-38.0); INR 1.18 (0.86-1.15)
[2022-03-10 07:27] LABS: BNP 49 pg/mL (<=100)
[2022-03-10 07:47] LABS: Albumin 4.1 g/dL (3.2-5.2); Albumin/Globulin Ratio 1.5 (1-3); C Reactive Protein 12.64 mg/L (<8.01); Calcium 9.8 mg/dL (8.6-10.3); Globulin 2.7 g/dL (2-4); Potassium 3.1 mmol/L (3.5-5.0); Total Bilirubin 1.1 mg/dL (0.2-1.0); Total Protein 6.8 g/dL (6.4-8.9)
[2022-03-10] MEDS ORDERED: Potassium Chloride LIQUID 20 MEQ/15 ML LIQUID PO ONE (09:23)
[2022-03-10] MEDS ORDERED: Lactated Ringers 1000 ml BAG 1,000 ML IV ONE (09:27)
[2022-03-10 10:16] LABS: Urine Appearance Cloudy; Urine Bilirubin Negative (Negative); Urine Blood 2+ (Negative); Urine Color Amber; Urine Glucose Negative (Negative); Urine Ketones 2+ (Negative); Urine Nitrite Negative (Negative); Urine Protein 2+(100 mg/dL) (Negative); Urine Specific Gravity 1.021 (1.002-1.030); Urine Urobilinogen Positive (Negative)
[2022-03-10] MEDS ORDERED: Iohexol 300 (CONTRAST) 10 ML SDV IV ONE (10:20)
[2022-03-10 10:25] LABS: Urine Bacteria Absent (Absent); Urine Red Blood Cell 2+(6-10/hpf) (Absent); Urine Squamous Epithelial Cell Present (Absent); Urine White Blood Cell Trace(0-5/hpf) (Absent)
[2022-03-10] MEDS ORDERED: Ondansetron 4 mg VIAL 2 MG/ML 2 ml VIAL IV PRN (16:39)
[2022-03-10 17:38] LABS: HIV 4th Generation Nonreactive (Nonreactive)
[2022-03-10 17:41] LABS: TSH Ultra Thyroid Stim Horm 1.36 mcIU/mL (0.34-5.60)
[2022-03-10 17:53] LABS: Folate 12.86 ng/mL (5.90-24.80)
[2022-03-10 18:11] LABS: Hepatitis C Antibody Negative (Negative)
[2022-03-10 19:07] LABS: Ferritin 1478.1 ng/mL (24-336)
[2022-03-10] MEDS: Enoxaparin 40 MG/0.4 ML SYR SUBCUT SCH (20:36)
[2022-03-10] MEDS: Pantoprazole VIAL 40 MG VIAL IV SCH (20:37)
[2022-03-10] MEDS: Multivitamins/Minerals TAB PO SCH (20:41)
[2022-03-11 05:53] LABS: Hematocrit 19 % (42-52); Hemoglobin 6.9 g/dL (14.0-18.0); Mean Corpuscular HGB Conc 36 g/dL (31-36); Mean Corpuscular Hemoglobin 34 pg (27-31); Mean Corpuscular Volume 95 fL (80-94); Mean Platelet Volume 7.2 fL (7.4-10.4); Platelet Count 139 10^3/uL (150-450); Red Blood Count 2.03 10^6 /uL (4.18-5.48); Red Cell Distribution Width 16 % (10-15)
[2022-03-11 06:10] LABS: Albumin 3.4 g/dL (3.2-5.2); Albumin/Globulin Ratio 1.6 (1-3); Globulin 2.1 g/dL (2-4); Phosphorus 2.4 mg/dL (2.5-5.0); Potassium 3.1 mmol/L (3.5-5.0); Total Bilirubin 0.8 mg/dL (0.2-1.0); Total Protein 5.5 g/dL (6.4-8.9); eGFR CKD-EPI 103.7 (>60)
[2022-03-11 07:57] LABS: Magnesium 0.8 mg/dL (1.9-2.7)
[2022-03-11] MEDS ORDERED: Magnesium Sulf 4 GM/100 ML IV 4,000 MG/100 ML BAG IVPB ONE (08:04)
[2022-03-11] MEDS: Potassium & Sodium Phos 250 mg = 1 PACKET PO SCH ×2 (08:04→20:30)
[2022-03-11] MEDS: Pantoprazole VIAL 40 MG VIAL IV SCH ×2 (08:04→20:31)
[2022-03-11] MEDS: Multivitamins/Minerals TAB PO SCH (08:05)
[2022-03-11] MEDS ORDERED: MAGNESIUM SULFATE ONE (08:34)
[2022-03-11] MEDS: KCL 20 MEQ/100 ML IVPREMIX 20 MEQ/100 ML BAG IV SCH ×2 (08:50→10:32)
[2022-03-11] MEDS ORDERED: Magnesium Sulfate 2 gm BAG 2 GM/50 ML BAG IVPB ONE (11:00)
[2022-03-11 11:20] LABS: ABS Lymphocytes 0.9 10^3/ul (1.0-4.8); ABS Monocytes 0.4 10^3/ul (0-0.8); ABS Neutrophils 3.1 10^3/ul (1.5-7.7); Eosinophil % 0.7 %; Hematocrit 18 % (42-52); Hemoglobin 6.6 g/dL (14.0-18.0); Mean Corpuscular HGB Conc 36 g/dL (31-36); Mean Corpuscular Hemoglobin 33 pg (27-31); Mean Corpuscular Volume 93 fL (80-94); Mean Platelet Volume 6.6 fL (7.4-10.4); Nucleated Red Blood Cells % 0.3; Platelet Count 138 10^3/uL (150-450); Red Blood Count 1.97 10^6 /uL (4.18-5.48); Red Cell Distribution Width 15 % (10-15); White Blood Count 4.5 10^3/uL (3.5-10.8)
[2022-03-11] MEDS ORDERED: Zosyn per Pharmacy NOTE FOLLOW UP SCH (12:00)
[2022-03-11] MEDS ORDERED: Piperacillin/Tazobac ADVAN 3.375 GM in NS 0.9% 100 ml BAG 100 ML IV ONE (12:00)
[2022-03-11 14:24] LABS: Corrected Retic Count 0.2 % (0.5-1.5); Hematocrit for Retic CNT 19 % (42-52); Immature Retic Fraction 0.29; RBC Retic Count 1.98 10^6/uL (4.18-5.48)
[2022-03-11 15:34] LABS: Hematocrit 19 % (42-52); Hemoglobin 6.8 g/dL (14.0-18.0)
[2022-03-11] MEDS: Enoxaparin 40 MG/0.4 ML SYR SUBCUT SCH (15:59)
[2022-03-11 16:33] LABS: Calcium 8.6 mg/dL (8.6-10.3); Magnesium 1.7 mg/dL (1.9-2.7); Potassium 3.4 mmol/L (3.5-5.0); eGFR CKD-EPI 104.1 (>60)
[2022-03-11] MEDS ORDERED: Potassium Chlor 20 meq TAB.ER PO ONE (17:05)
[2022-03-11] MEDS: ZOSYN 3.375 GM Q8H per EXTENDED INFUSION IV SCH (19:02)
[2022-03-12 02:20] LABS: Hematocrit 22 % (42-52); Hemoglobin 7.8 g/dL (14.0-18.0)
[2022-03-12] MEDS: ZOSYN 3.375 GM Q8H per EXTENDED INFUSION IV SCH ×3 (02:25→18:09)
[2022-03-12 05:49] LABS: Hematocrit 21 % (42-52); Hemoglobin 7.5 g/dL (14.0-18.0); Mean Corpuscular HGB Conc 36 g/dL (31-36); Mean Corpuscular Hemoglobin 32 pg (27-31); Mean Corpuscular Volume 91 fL (80-94); Mean Platelet Volume 7.2 fL (7.4-10.4); Platelet Count 145 10^3/uL (150-450); Red Blood Count 2.32 10^6 /uL (4.18-5.48); Red Cell Distribution Width 17 % (10-15); White Blood Count 3.6 10^3/uL (3.5-10.8)
[2022-03-12 06:05] LABS: Anion Gap 10 mmol/L (2-11); Blood Urea Nitrogen 15 mg/dL (6-24); CO2 Carbon Dioxide 24 mmol/L (22-32); Calcium 8.8 mg/dL (8.6-10.3); Chloride 101 mmol/L (101-111); Glucose 145 mg/dL (70-100); Magnesium 1.1 mg/dL (1.9-2.7); Potassium 3.3 mmol/L (3.5-5.0); Sodium 135 mmol/L (135-145); eGFR CKD-EPI 104.1 (>60)
[2022-03-12 06:06] LABS: ABS Monocytes 0.4 10^3/ul (0-0.8); ABS Neutrophils 2.1 10^3/ul (1.5-7.7); Eosinophil % 1.3 %; Lymphocyte % 27.4 %; Nucleated Red Blood Cells % 0.2
[2022-03-12] MEDS ORDERED: Potassium Chlor 20 meq TAB.ER PO ONE (06:59)
[2022-03-12 07:57] LABS: RBC Morphology Normal (Normal)
[2022-03-12] MEDS ORDERED: Magnesium Sulf 4 GM/100 ML IV 4,000 MG/100 ML BAG IVPB ONE ×2 (08:00→22:54)
[2022-03-12] MEDS ORDERED: Magnesium Sulfate 2 gm BAG 0 GM/0 ML BAG ONE (08:30)
[2022-03-12] MEDS: Multivitamins/Minerals TAB PO SCH (08:46)
[2022-03-12] MEDS: Potassium & Sodium Phos 250 mg = 1 PACKET PO SCH ×2 (08:49→20:10)
[2022-03-12] MEDS ORDERED: Pantoprazole VIAL 40 MG VIAL IV SCH (09:00)
[2022-03-12] MEDS ORDERED: Potassium Phosphate IV 10 MMOLE in NS 0.9% 250 ml 250 ML IVPB ONE (09:00)
[2022-03-12 10:51] LABS: Phosphorus < 1.0 mg/dL (2.5-5.0)
[2022-03-12 11:25] LABS: Rapid COVID-19 Molecular Undetected (Undetected)
[2022-03-12 12:44] LABS: LDH 167 U/L (140-271)
[2022-03-12 14:26] LABS: Anion Gap 7 mmol/L (2-11); Blood Urea Nitrogen 13 mg/dL (6-24); CO2 Carbon Dioxide 26 mmol/L (22-32); Calcium 8.6 mg/dL (8.6-10.3); Chloride 103 mmol/L (101-111); Glucose 160 mg/dL (70-100); Magnesium 1.6 mg/dL (1.9-2.7); Potassium 3.6 mmol/L (3.5-5.0); Sodium 136 mmol/L (135-145); eGFR CKD-EPI 107.4 (>60)
[2022-03-12 15:06] LABS: Phosphorus < 1.0 mg/dL (2.5-5.0)
[2022-03-12] MEDS ORDERED: Potassium Phosphate IV 15 MMOLE in NS 0.9% 250 ml 250 ML IVPB ONE ×2 (15:17→23:30)
[2022-03-12] MEDS: Enoxaparin 40 MG/0.4 ML SYR SUBCUT SCH (15:43)
[2022-03-12 22:27] LABS: Calcium 8.3 mg/dL (8.6-10.3); Magnesium 1.1 mg/dL (1.9-2.7); Phosphorus 1.2 mg/dL (2.5-5.0); Potassium 3.7 mmol/L (3.5-5.0); eGFR CKD-EPI 109.8 (>60)
[2022-03-13] MEDS: ZOSYN 3.375 GM Q8H per EXTENDED INFUSION IV SCH (02:37)
[2022-03-13] MEDS ORDERED: Magnesium Sulfate 2 GM IV (Premix) IVPB ONE (05:00)
[2022-03-13] MEDS ORDERED: Magnesium Sulfate IV 3 GM in NS 0.9% 100 ml BAG 100 ML IVPB ONE (05:00)
[2022-03-13 05:06] VITALS: BP 108/67
[2022-03-13] MEDS ORDERED: Sodium Phosphate IV 15 MMOLE in NS 0.9% 250 ml 250 ML IV ONE (06:00)
[2022-03-13 06:15] LABS: Hematocrit 20 % (42-52); Hemoglobin 7.2 g/dL (14.0-18.0); Mean Corpuscular HGB Conc 35 g/dL (31-36); Mean Corpuscular Hemoglobin 33 pg (27-31); Mean Corpuscular Volume 93 fL (80-94); Mean Platelet Volume 6.8 fL (7.4-10.4); Platelet Count 170 10^3/uL (150-450); Red Blood Count 2.19 10^6 /uL (4.18-5.48); Red Cell Distribution Width 17 % (10-15); White Blood Count 4.3 10^3/uL (3.5-10.8)
[2022-03-13 06:29] LABS: ABS Eosinophils 0.1 10^3/ul (0-0.6); ABS Lymphocytes 0.9 10^3/ul (1.0-4.8); ABS Monocytes 0.5 10^3/ul (0-0.8); ABS Neutrophils 2.8 10^3/ul (1.5-7.7); Eosinophil % 1.9 %; Lymphocyte % 21.4 %; Nucleated Red Blood Cells % 0.1
[2022-03-13] MEDS ORDERED: Magnesium Sulfate 1 GM IV 1 GM/100 ML BAG IV ONE (06:30)
[2022-03-13 06:38] LABS: Calcium 8.7 mg/dL (8.6-10.3); Magnesium 2.4 mg/dL (1.9-2.7); Phosphorus 2.4 mg/dL (2.5-5.0); Potassium 3.7 mmol/L (3.5-5.0); eGFR CKD-EPI 112.9 (>60)
[2022-03-13] MEDS ORDERED: Nicotine PATCH 21 MG/24 HR PATCH TRANSDERM SCH (08:00)
[2022-03-16 12:05] LABS: Kappa Free Light Chain 1.55 mg/dL; Lambda Free Light Chain, S 2.36 mg/dL
[2022-03-16 17:29] LABS: Albumin 2.8 g/dL (3.4-4.7); Albumin/Globulin Ratio 1.07; Gamma Globulin 0.7 g/dL (0.6-1.6); Total Protein(PEP) 5.4 g/dL (6.3 - 7.9)
[2022-03-18 00:13] LABS: Hemochromatosis Specimen WB Whole Blood
== END 2022-03-13 08:10 | disposition left against medical advice (07) | DRG 872 ==
LOC: ED 06:11 → EDHOLD 14:51 → SUATTDRO 14:51 → MEDTELE 18:33
PROVIDERS: ADMIT Internal Medicine; ATTEND Student in an Organized Health Care Education/Training Program

== ENCOUNTER 2024-03-04 05:39 | Inpatient (IN) ==
[2024-03-04] MEDS: Lactated Ringers 1000 ml BAG 1,000 ML IV ONE (06:33)
[2024-03-04 06:43] LABS: ABS Basophils 0.1 10^3/uL (0.0-0.1); ABS Lymphocytes 1.3 10^3/uL (1.0-4.8); ABS Monocytes 1.2 10^3/uL (0.0-1.1); ABS Neutrophils 9.2 10^3/uL (1.5-7.6); ABS Nucleated RBC 0.01 10^3/ul; Eosinophil % 0.1 %; Hematocrit 37.2 % (38-53); Hemoglobin 13.3 g/dL (13.2-16.3); Mean Corpuscular Hemoglobin 33.4 pg (27-33); Mean Corpuscular Hgb Conc 35.8 g/dL (31-36); Mean Corpuscular Volume 93.4 fL (80-97); Mean Platelet Volume 7.1 fL (7.5-11.2); Nucleated Red Blood Cells % 0.1 %/100WBC (0.0-0.8); Platelet Count 317 10^3/uL (150-450); Red Blood Count 3.99 10^6/uL (4.06-5.63); Red Cell Distribution Width 13.5 % (12-17); White Blood Count 11.7 10^3/uL (3.6-10.2)
[2024-03-04] MEDS ORDERED: LORazepam 2 mg VIAL 1 ml IV PUSH ONE (06:46)
[2024-03-04] MEDS ORDERED: Lorazepam PYXIS KEY PRN (06:46)
[2024-03-04 07:04] LABS: Activated Partial Thrombo Time 30.9 seconds (26.0-38.0); INR 1.3 (0.83-1.13)
[2024-03-04] MEDS: diazePAM INJ CARPUJECT 5 MG/ML SYRINGE IV ONE (07:06)
[2024-03-04] MEDS: LORazepam 2 MG/ML 1 mL Syringe IV ONE (07:19)
[2024-03-04 07:27] LABS: High Sens Troponin Baseline 226 pg/mL (<20)
[2024-03-04 07:33] LABS: ALT 59 U/L (7-52); AST 78 U/L (13-39); Albumin 3.7 g/dL (3.2-5.2); Albumin/Globulin Ratio 1.3 (1-3); Alcohol, S < 13 mg/dL (<13); Alkaline Phosphatase 75 U/L (35-149); Anion Gap 16 mmol/L (2-16); Blood Urea Nitrogen 49 mg/dL (6-24); C Reactive Protein 402.03 mg/L (<8.01); CO2 Carbon Dioxide 31 mmol/L (22-32); Calcium 9.4 mg/dL (8.6-10.3); Chloride 90 mmol/L (101-111); Creatine Kinase 253 U/L (10-223); Creatinine, Serum 0.86 mg/dL (0.67-1.17); Globulin 2.9 g/dL (2-4); Glucose 189 mg/dL (70-100); Magnesium 1.3 mg/dL (1.9-2.7); Potassium 3.9 mmol/L (3.5-5.0); Sodium 137 mmol/L (135-145); Total Bilirubin 1.5 mg/dL (0.2-1.0); Total Protein 6.6 g/dL (6.4-8.9)
[2024-03-04] MEDS ORDERED: LORazepam 2 mg VIAL 1 ml IV PUSH SCH (08:00)
[2024-03-04 08:12] LABS: Phosphorus 3.6 mg/dL (2.5-5.0)
[2024-03-04 08:16] LABS: High Sensitivity Troponin 1 Hr 221 pg/mL (<20)
[2024-03-04] MEDS: Thiamine 100 MG/ML 2 ml VIAL 100 MG, Folic Acid IV 1 MG, Multiple Vitamin IV ADULT 10 M... IV ONE (08:46)
[2024-03-04] MEDS: Magnesium Sulfate 2 gm BAG 2 GM/50 ML BAG IVPB ONE (13:09)
[2024-03-04] MEDS: Enoxaparin 40 MG/0.4 ML SYR SUBCUT SCH (14:59)
[2024-03-04] MEDS: NS 0.9% 1000 ml BAG 1,000 ML IV SCH (14:59)
[2024-03-04 15:01] LABS: Urine Appearance Clear; Urine Bilirubin Negative (Negative); Urine Blood 2+ (Negative); Urine Color Yellow; Urine Glucose Negative (Negative); Urine Ketones Trace (Negative); Urine Nitrite Negative (Negative); Urine Protein Trace (Negative); Urine Specific Gravity 1.023 (1.002-1.030); Urine Urobilinogen 1+ (Negative)
[2024-03-04 15:07] LABS: Urine Bacteria Absent /HPF (Absent); Urine Red Blood Cell 1+(3-5/hpf) /HPF (0-Trace); Urine Squamous Epithelial Cell Present /HPF (Absent); Urine White Blood Cell Trace(0-5/hpf) /HPF (0-Trace)
[2024-03-04] MEDS ORDERED: Dextrose 50% Syringe 50 ml 25 GM/50 ML SYRINGE IV PUSH PRN (15:07)
[2024-03-04 15:24] LABS: Urine Benzodiazepine Screen None Detected (None Detect); Urine Cannabinoids Screen None Detected (None Detect); Urine Opiates Screen None Detected (None Detect)
[2024-03-04 15:46] LABS: % Iron Saturation 11 % (15-55); .Transferrin 131 mg/dL (203-362); Iron < 20 ug/dL (50-212); Total Iron Binding Capacity 183 mcg/dL (250-450); Unsaturated Iron Binding 163 ug/dL; Uric Acid 11.9 mg/dL (4.4-7.6)
[2024-03-04 16:02] LABS: TSH Ultra Thyroid Stim Horm 2.05 mcIU/mL (0.34-5.60)
[2024-03-04 16:13] LABS: Folate 12.78 ng/mL (5.90-24.80)
[2024-03-04 16:14] LABS: Vitamin B12 381 pg/mL (180-914)
[2024-03-04 19:09] LABS: Urine Buprenorphine Screen None Detected (None Detect); Urine Fentanyl Screen None Detected (None Detect); Urine Hydrocodone Screen None Detected (None Detect)
[2024-03-04] MEDS: Thiamine 100 MG/ML 2 ml VIAL 250 MG in NS 0.9% 100 ml BAG 100 ML IV SCH (20:46)
[2024-03-05 05:29] LABS: ABS Lymphocytes 1.1 10^3/uL (1.0-4.8); ABS Monocytes 1.1 10^3/uL (0.0-1.1); ABS Neutrophils 5.8 10^3/uL (1.5-7.6); ABS Nucleated RBC 0.01 10^3/ul; Eosinophil % 0.4 %; Hematocrit 30.7 % (38-53); Hemoglobin 10.9 g/dL (13.2-16.3); Lymphocyte % 13.3 %; Mean Corpuscular Hemoglobin 33.4 pg (27-33); Mean Corpuscular Hgb Conc 35.5 g/dL (31-36); Mean Corpuscular Volume 93.9 fL (80-97); Mean Platelet Volume 7.2 fL (7.5-11.2); Nucleated Red Blood Cells % 0.1 %/100WBC (0.0-0.8); Platelet Count 293 10^3/uL (150-450); Red Blood Count 3.27 10^6/uL (4.06-5.63); Red Cell Distribution Width 13.7 % (12-17); White Blood Count 8.1 10^3/uL (3.6-10.2)
[2024-03-05 05:56] LABS: Albumin 2.9 g/dL (3.2-5.2); Albumin/Globulin Ratio 1.3 (1-3); Creatinine, Serum 0.68 mg/dL (0.67-1.17); Globulin 2.3 g/dL (2-4); Magnesium 1.3 mg/dL (1.9-2.7); Potassium 3.1 mmol/L (3.5-5.0); Total Bilirubin 1.3 mg/dL (0.2-1.0); Total Protein 5.2 g/dL (6.4-8.9); eGFR CKD-EPI 108.4 (>60)
[2024-03-05] MEDS: Magnesium Sulfate 2 gm BAG 2 GM/50 ML BAG IVPB ONE (09:25)
[2024-03-05] MEDS: Potassium Chlor 20 meq TAB.ER PO SCH (09:25)
[2024-03-05] MEDS: Magnesium Sulfate IV 1GM/100ML 1 GM/100 ML BAG IV ONE (11:17)
[2024-03-05 15:05] LABS: C Reactive Protein 253.38 mg/L (<8.01)
[2024-03-06] MEDS: Lactated Ringers 1000 ml BAG 1,000 ML IV SCH (01:10)
[2024-03-06 05:11] LABS: ABS Eosinophils 0.1 10^3/uL (0.0-0.5); ABS Lymphocytes 1.2 10^3/uL (1.0-4.8); ABS Monocytes 1.1 10^3/uL (0.0-1.1); Eosinophil % 0.9 %; Hematocrit 30.1 % (38-53); Hemoglobin 10.7 g/dL (13.2-16.3); Lymphocyte % 13.8 %; Mean Corpuscular Hemoglobin 33.6 pg (27-33); Mean Corpuscular Hgb Conc 35.5 g/dL (31-36); Mean Corpuscular Volume 94.9 fL (80-97); Mean Platelet Volume 7.1 fL (7.5-11.2); Platelet Count 304 10^3/uL (150-450); Red Blood Count 3.17 10^6/uL (4.06-5.63); Red Cell Distribution Width 13.6 % (12-17); White Blood Count 8.4 10^3/uL (3.6-10.2)
[2024-03-06 05:58] LABS: C Reactive Protein 195.63 mg/L (<8.01); Calcium 7.7 mg/dL (8.6-10.3); Creatinine, Serum 0.65 mg/dL (0.67-1.17); Magnesium 1.2 mg/dL (1.9-2.7); Phosphorus 2.8 mg/dL (2.5-5.0); Potassium 3.8 mmol/L (3.5-5.0); eGFR CKD-EPI 109.9 (>60)
[2024-03-06] MEDS: Multivitamins/Minerals TAB PO SCH (08:05)
[2024-03-06] MEDS ORDERED: Thiamine 100 MG/ML 2 ml VIAL 250 MG in NS 0.9% 100 ml BAG 100 ML IV SCH (09:00)
[2024-03-06] MEDS: Magnesium Sulf 4 GM/100 ML IV 4,000 MG/100 ML BAG IVPB ONE (10:01)
[2024-03-06 10:58] LABS: Albumin 2.7 g/dL (3.2-5.2); Albumin/Globulin Ratio 1.1 (1-3); Direct Bilirubin 0.5 mg/dL (0.03-0.18); Globulin 2.4 g/dL (2-4); Indirect Bilirubin 0.6 mg/dL (0.3-1.0); Total Bilirubin 1.1 mg/dL (0.2-1.0); Total Protein 5.1 g/dL (6.4-8.9)
[2024-03-07 09:12] LABS: ABS Basophils 0.1 10^3/uL (0.0-0.1); ABS Eosinophils 0.1 10^3/uL (0.0-0.5); ABS Lymphocytes 1.1 10^3/uL (1.0-4.8); ABS Monocytes 0.8 10^3/uL (0.0-1.1); Eosinophil % 1.7 %; Hematocrit 32.3 % (38-53); Hemoglobin 11.5 g/dL (13.2-16.3); Lymphocyte % 13.8 %; Mean Corpuscular Hemoglobin 33.8 pg (27-33); Mean Corpuscular Hgb Conc 35.8 g/dL (31-36); Mean Corpuscular Volume 94.5 fL (80-97); Mean Platelet Volume 7.1 fL (7.5-11.2); Platelet Count 398 10^3/uL (150-450); Red Blood Count 3.41 10^6/uL (4.06-5.63); Red Cell Distribution Width 13.8 % (12-17); White Blood Count 8.2 10^3/uL (3.6-10.2)
[2024-03-07 09:59] LABS: Calcium 8.4 mg/dL (8.6-10.3); Creatinine, Serum 0.67 mg/dL (0.67-1.17); Magnesium 1.2 mg/dL (1.9-2.7); Potassium 4.3 mmol/L (3.5-5.0); eGFR CKD-EPI 108.9 (>60)
[2024-03-07] MEDS: Magnesium Sulf 4 GM/100 ML IV 4,000 MG/100 ML BAG IVPB ONE (11:11)
[2024-03-07 20:28] LABS: Calcium 8.9 mg/dL (8.6-10.3); Creatinine, Serum 0.73 mg/dL (0.67-1.17); Magnesium 1.7 mg/dL (1.9-2.7); Potassium 4.4 mmol/L (3.5-5.0); eGFR CKD-EPI 106.1 (>60)
[2024-03-08] MEDS ORDERED: Polyethylene Glycol 3350 17 GM PACKET PO PRN (03:13)
[2024-03-08 10:37] LABS: Creatinine, Serum 0.66 mg/dL (0.67-1.17); Magnesium 1.2 mg/dL (1.9-2.7); Potassium 4.9 mmol/L (3.5-5.0); eGFR CKD-EPI 109.4 (>60)
[2024-03-08] MEDS: Magnesium Sulf 4 GM/100 ML IV 4,000 MG/100 ML BAG IVPB ONE (12:24)
[2024-03-08 18:19] LABS: C Reactive Protein 150.29 mg/L (<8.01)
[2024-03-09 05:46] LABS: ABS Basophils 0.1 10^3/uL (0.0-0.1); ABS Eosinophils 0.2 10^3/uL (0.0-0.5); ABS Lymphocytes 1.2 10^3/uL (1.0-4.8); ABS Monocytes 0.6 10^3/uL (0.0-1.1); ABS Neutrophils 6.2 10^3/uL (1.5-7.6); Eosinophil % 2.9 %; Hematocrit 30.9 % (38-53); Hemoglobin 10.8 g/dL (13.2-16.3); Lymphocyte % 14.5 %; Mean Corpuscular Hemoglobin 32.7 pg (27-33); Mean Corpuscular Hgb Conc 34.9 g/dL (31-36); Mean Corpuscular Volume 93.7 fL (80-97); Mean Platelet Volume 7.3 fL (7.5-11.2); Platelet Count 480 10^3/uL (150-450); Red Blood Count 3.29 10^6/uL (4.06-5.63); Red Cell Distribution Width 13.9 % (12-17); White Blood Count 8.3 10^3/uL (3.6-10.2)
[2024-03-09 06:06] LABS: Albumin 2.8 g/dL (3.2-5.2); Albumin/Globulin Ratio 1.1 (1-3); Calcium 8.8 mg/dL (8.6-10.3); Creatinine, Serum 0.66 mg/dL (0.67-1.17); Globulin 2.6 g/dL (2-4); Magnesium 1.3 mg/dL (1.9-2.7); Potassium 4.8 mmol/L (3.5-5.0); Total Protein 5.4 g/dL (6.4-8.9); eGFR CKD-EPI 109.4 (>60)
[2024-03-09] MEDS: Magnesium Sulf 4 GM/100 ML IV 4,000 MG/100 ML BAG IVPB ONE (09:56)
[2024-03-10 07:59] LABS: Phosphorus 4.8 mg/dL (2.5-5.0)
[2024-03-10] MEDS ORDERED: Thiamine 100 MG/ML 2 ml VIAL 250 MG in NS 0.9% 100 ml BAG 100 ML IV SCH (08:00)
[2024-03-10] MEDS: Magnesium Sulf 4 GM/100 ML IV 4,000 MG/100 ML BAG IVPB ONE (08:57)
[2024-03-10 10:42] VITALS: BP 124/70
[2024-03-20] MEDS ORDERED: Senna TAB 8.6 mg TAB PO PRN (17:06)
[2024-03-20] MEDS ORDERED: Polyethylene Glycol 3350 17 GM PACKET PO PRN (17:06)
[2024-03-20] MEDS ORDERED: Ondansetron 4 mg VIAL 2 MG/ML 2 ml VIAL IV PRN (17:06)
== END 2024-03-10 13:30 | disposition home or self-care (01) | DRG 897 ==
LOC: ED 05:39 → EDHOLD 14:04 → MEDTELE 14:35
PROVIDERS: ADMIT Hospitalist; ATTEND Internal Medicine

== ENCOUNTER 2024-03-20 09:45 | Observation (INO) ==
[2024-03-20] MEDS: NS 0.9% 1000 ml BAG 1,000 ML IV ONE ×2 (12:00→15:14)
[2024-03-20 12:02] LABS: ABS Basophils 0.1 10^3/uL (0.0-0.1); ABS Eosinophils 0.1 10^3/uL (0.0-0.5); ABS Lymphocytes 1.8 10^3/uL (1.0-4.8); ABS Monocytes 0.9 10^3/uL (0.0-1.1); ABS Neutrophils 8.2 10^3/uL (1.5-7.6); Hematocrit 34.5 % (38-53); Lymphocyte % 16.1 %; Mean Corpuscular Hemoglobin 31.3 pg (27-33); Mean Corpuscular Hgb Conc 34.7 g/dL (31-36); Mean Corpuscular Volume 90.3 fL (80-97); Mean Platelet Volume 6.9 fL (7.5-11.2); Platelet Count 360 10^3/uL (150-450); Red Blood Count 3.83 10^6/uL (4.06-5.63); Red Cell Distribution Width 13.9 % (12-17); White Blood Count 11.1 10^3/uL (3.6-10.2)
[2024-03-20] MEDS: Ondansetron 4 mg VIAL 2 MG/ML 2 ml VIAL IV ONE (12:02)
[2024-03-20] MEDS: Morphine 2 MG/ML SYRINGE IV ONE ×2 (12:05→18:08)
[2024-03-20 12:27] LABS: ALT 34 U/L (7-52); AST 35 U/L (13-39); Albumin 3.4 g/dL (3.2-5.2); Alcohol, S < 13 mg/dL (<13); Alkaline Phosphatase 120 U/L (35-149); Anion Gap 10 mmol/L (2-16); Blood Urea Nitrogen 21 mg/dL (6-24); C Reactive Protein 202.94 mg/L (<8.01); CO2 Carbon Dioxide 27 mmol/L (22-32); Calcium 9.7 mg/dL (8.6-10.3); Chloride 99 mmol/L (101-111); Globulin 3.3 g/dL (2-4); Glucose 113 mg/dL (70-100); Magnesium 1.3 mg/dL (1.9-2.7); Potassium 4.7 mmol/L (3.5-5.0); Sodium 136 mmol/L (135-145); Total Bilirubin 1.3 mg/dL (0.2-1.0); Total Protein 6.7 g/dL (6.4-8.9); Uric Acid 10.3 mg/dL (4.4-7.6); eGFR CKD-EPI 107.5 (>60)
[2024-03-20] MEDS: ACETAMINOPHEN IV ONE (14:24)
[2024-03-20] MEDS: Lactated Ringers 1000 ml BAG 1,000 ML IV ONE (14:24)
[2024-03-20] MEDS: methylPREDNISolone SOD SUCC 125 mg 2 ML VIAL IV ONE (18:01)
[2024-03-20] MEDS ORDERED: Ondansetron 4 mg VIAL 2 MG/ML 2 ml VIAL IV PRN (18:22)
[2024-03-20] MEDS ORDERED: Senna TAB 8.6 mg TAB PO PRN (18:22)
[2024-03-20] MEDS ORDERED: Polyethylene Glycol 3350 17 GM PACKET PO PRN (18:22)
[2024-03-20] MEDS: Enoxaparin 40 MG/0.4 ML SYR SUBCUT SCH (20:44)
[2024-03-21] MEDS: Multivitamins ADULT w/MIN LIQ 15 ML UDC PO SCH (09:05)
[2024-03-21 11:03] LABS: Calcium 8.6 mg/dL (8.6-10.3); Creatinine, Serum 0.67 mg/dL (0.67-1.17); Magnesium 1.3 mg/dL (1.9-2.7); Potassium 4.5 mmol/L (3.5-5.0); eGFR CKD-EPI 108.9 (>60)
[2024-03-21 13:14] VITALS: BP 142/91
== END 2024-03-21 13:14 | disposition home or self-care (01) ==
LOC: EDHOLD 09:45 → ED 09:45 → MED 03-21 06:47 → EDHOLD 03-21 13:13
PROVIDERS: ADMIT Internal Medicine; ATTEND Internal Medicine

== ENCOUNTER 2024-04-26 13:49 | Observation (INO) ==
[2024-04-26] MEDS: Lactated Ringers 1000 ml BAG 1,000 ML IV ONE ×2 (15:02→17:32)
[2024-04-26] MEDS: Acetaminophen IV 1 GM/100ML 880 MG/88 ML BAG IV ONE (15:03)
[2024-04-26] MEDS: Ondansetron 4 mg VIAL 2 MG/ML 2 ml VIAL IV ONE (15:03)
[2024-04-26] MEDS: methylPREDNISolone SOD SUCC 125 mg 2 ML VIAL IV ONE (15:03)
[2024-04-26 15:21] LABS: ABS Monocytes 1.2 10^3/uL (0.0-1.1); ABS Neutrophils 6.6 10^3/uL (1.5-7.6); Hematocrit 39.6 % (38-53); Hemoglobin 13.4 g/dL (13.2-16.3); Lymphocyte % 10.9 %; Mean Corpuscular Hemoglobin 30.7 pg (27-33); Mean Corpuscular Hgb Conc 33.9 g/dL (31-36); Mean Corpuscular Volume 90.7 fL (80-97); Mean Platelet Volume 6.7 fL (7.5-11.2); Platelet Count 168 10^3/uL (150-450); Red Blood Count 4.37 10^6/uL (4.06-5.63); Red Cell Distribution Width 15.4 % (12-17); White Blood Count 8.9 10^3/uL (3.6-10.2)
[2024-04-26 16:05] LABS: ALT 17 U/L (7-52); AST 21 U/L (13-39); Albumin 4.2 g/dL (3.2-5.2); Albumin/Globulin Ratio 1.4 (1-3); Alcohol, S < 13 mg/dL (<13); Alkaline Phosphatase 72 U/L (35-149); Anion Gap 21 mmol/L (2-16); Blood Urea Nitrogen 12 mg/dL (6-24); C Reactive Protein 377.16 mg/L (<8.01); CO2 Carbon Dioxide 22 mmol/L (22-32); Calcium 9.5 mg/dL (8.6-10.3); Chloride 93 mmol/L (101-111); Creatinine, Serum 0.62 mg/dL (0.67-1.17); Globulin 2.9 g/dL (2-4); Glucose 142 mg/dL (70-100); Potassium 4.1 mmol/L (3.5-5.0); Sodium 136 mmol/L (135-145); Total Bilirubin 1.5 mg/dL (0.2-1.0); Total Protein 7.1 g/dL (6.4-8.9); Uric Acid 12.6 mg/dL (4.4-7.6); eGFR CKD-EPI 111.5 (>60)
[2024-04-26 16:49] LABS: Erythrocyte Sed Rate 57 mm/Hr (0-19)
[2024-04-26] MEDS: Thiamine 100 MG/ML 2 ml VIAL (200 mg) IM ONE (19:33)
[2024-04-26] MEDS: HYDROcodone/ACETAMIN 5/325 mg TAB PO PRN (23:17)
[2024-04-27] MEDS: Multivitamins/Minerals TAB PO SCH (10:19)
[2024-04-27] MEDS: HYDROcodone/ACETAMIN 5/325 mg TAB PO PRN (13:54)
[2024-04-27 14:54] LABS: Body Fluid Total Nucleated 87712 /mcL
[2024-04-27 15:08] LABS: Body Fluid Appearance Cloudy; Body Fluid Color Yellow; Body Fluid Source Synovial Fluid
[2024-04-27 16:28] LABS: Body Fluid Mono 10 %; Body Fluid Total Cells Counted 200
[2024-04-28 06:17] LABS: Hematocrit 35.6 % (38-53); Hemoglobin 12.3 g/dL (13.2-16.3); Mean Corpuscular Hemoglobin 31.8 pg (27-33); Mean Corpuscular Hgb Conc 34.6 g/dL (31-36); Mean Corpuscular Volume 91.8 fL (80-97); Mean Platelet Volume 7.3 fL (7.5-11.2); Platelet Count 163 10^3/uL (150-450); Red Blood Count 3.88 10^6/uL (4.06-5.63); Red Cell Distribution Width 15.7 % (12-17); White Blood Count 6.9 10^3/uL (3.6-10.2)
[2024-04-28 06:30] LABS: Creatinine, Serum 0.54 mg/dL (0.67-1.17); Magnesium 1.2 mg/dL (1.9-2.7); Potassium 3.9 mmol/L (3.5-5.0); eGFR CKD-EPI 116.2 (>60)
[2024-04-28] MEDS ORDERED: Dextrose 50% Syringe 50 ml 25 GM/50 ML SYRINGE IV PUSH PRN (06:48)
[2024-04-28] MEDS: Magnesium Sulf 4 GM/100 ML IV 4,000 MG/100 ML BAG IVPB ONE (09:25)
[2024-04-28 12:08] LABS: C Reactive Protein 137.03 mg/L (<8.01)
[2024-04-28 15:08] LABS: HIV 4th Generation Nonreactive (Nonreactive)
[2024-04-28 18:25] VITALS: BP 162/90
[2024-04-29 14:44] LABS: Anaplasma phagocytophilum Negative (Negative); B. miyamotoi PCR, B Negative (Negative); Babesia divergens/MO-1 Negative (Negative); Babesia ducani Negative (Negative); Ehrlichia chaffeensis Negative (Negative); Ehrlichia ewingii/canis Negative (Negative); Ehrlichia muris eauclairensis Negative (Negative)
[2024-04-29 17:24] LABS: B. burgdorferi PCR Negative (Negative); B. garinii/B. afzellii PCR Negative (Negative)
== END 2024-04-28 18:20 | disposition home or self-care (01) ==
LOC: EDHOLD 13:49 → ED 13:49 → SUATTDRO 17:55 → SSU 22:21
PROVIDERS: ADMIT Internal Medicine; ATTEND Student in an Organized Health Care Education/Training Program

== ENCOUNTER 2024-10-03 06:25 | Inpatient (IN) ==
[2024-10-03 07:08] LABS: ABS Basophils 0.2 10^3/uL (0.0-0.1); ABS Lymphocytes 1.2 10^3/uL (1.0-4.8); ABS Monocytes 1.3 10^3/uL (0.0-1.1); ABS Neutrophils 9.9 10^3/uL (1.5-7.6); Eosinophil % 0.3 %; Hematocrit 36.8 % (38-53); Hemoglobin 13.3 g/dL (13.2-16.3); Lymphocyte % 9.6 %; Mean Corpuscular Hemoglobin 34.6 pg (27-33); Mean Corpuscular Hgb Conc 36.1 g/dL (31-36); Mean Corpuscular Volume 95.8 fL (80-97); Mean Platelet Volume 7.1 fL (7.5-11.2); Platelet Count 362 10^3/uL (150-450); Red Blood Count 3.84 10^6/uL (4.06-5.63); Red Cell Distribution Width 13.9 % (12-17); White Blood Count 12.6 10^3/uL (3.6-10.2)
[2024-10-03] MEDS: NS 0.9% 1000 ml BAG 1,000 ML IV ONE (07:25)
[2024-10-03 08:04] LABS: ALT 12 U/L (7-52); AST 28 U/L (13-39); Acetaminophen < 15 mcg/mL; Albumin 2.9 g/dL (3.5-5.7); Albumin/Globulin Ratio 1.3 (1-3); Alcohol, S < 13 mg/dL (<13); Alkaline Phosphatase 69 U/L (35-149); Anion Gap 13 mmol/L (2-16); Blood Urea Nitrogen 17 mg/dL (6-24); CO2 Carbon Dioxide 22 mmol/L (22-32); Calcium 7.4 mg/dL (8.6-10.3); Chloride 102 mmol/L (101-111); Creatinine, Serum 0.43 mg/dL (0.67-1.17); Globulin 2.3 g/dL (2-4); Glucose 110 mg/dL (70-100); Potassium 3.4 mmol/L (3.5-5.0); Sodium 137 mmol/L (135-145); Total Bilirubin 1.1 mg/dL (0.2-1.0); Total Protein 5.2 g/dL (6.4-8.9); Uric Acid 7.8 mg/dL (4.4-7.6); eGFR CKD-EPI 124.5 (>60)
[2024-10-03] MEDS: Magnesium Sulfate 2 gm BAG 2 GM/50 ML BAG IVPB ONE ×2 (09:17→16:53)
[2024-10-03 10:26] LABS: Urine Appearance Clear; Urine Bilirubin 1+ (Negative); Urine Blood Trace (Negative); Urine Color Yellow; Urine Glucose Negative (Negative); Urine Ketones 2+ (Negative); Urine Nitrite Negative (Negative); Urine Protein 1+ (>=30 mg/dL) (Negative); Urine Specific Gravity 1.029 (1.002-1.030); Urine Urobilinogen 3+ (Negative)
[2024-10-03 10:30] LABS: Urine Amorphous Crystals Present /HPF (Absent); Urine Bacteria Absent /HPF (Absent); Urine Red Blood Cell Trace(0-2/hpf) /HPF (0-Trace); Urine Squamous Epithelial Cell Present /HPF (Absent); Urine White Blood Cell Trace(0-5/hpf) /HPF (0-Trace)
[2024-10-03 10:49] LABS: Urine Benzodiazepine Screen None Detected (None Detect); Urine Cannabinoids Screen None Detected (None Detect); Urine Opiates Screen None Detected (None Detect)
[2024-10-03] MEDS ORDERED: Senna TAB 8.6 mg TAB PO PRN (14:03)
[2024-10-03] MEDS: Potassium Chlor 20 meq TAB.ER PO ONE (16:44)
[2024-10-03] MEDS: Magnesium Sulf 4 GM/100 ML IV 4,000 MG/100 ML BAG IVPB ONE (16:45)
[2024-10-03] MEDS: methylPREDNISolone SOD SUCC 125 mg 2 ML VIAL IV ONE (16:45)
[2024-10-04 06:34] LABS: ABS Lymphocytes 0.6 10^3/uL (1.0-4.8); ABS Monocytes 0.4 10^3/uL (0.0-1.1); Hematocrit 34.3 % (38-53); Hemoglobin 12.5 g/dL (13.2-16.3); Lymphocyte % 6.4 %; Mean Corpuscular Hemoglobin 34.9 pg (27-33); Mean Corpuscular Hgb Conc 36.4 g/dL (31-36); Mean Corpuscular Volume 95.7 fL (80-97); Mean Platelet Volume 7.6 fL (7.5-11.2); Platelet Count 353 10^3/uL (150-450); Red Blood Count 3.58 10^6/uL (4.06-5.63); Red Cell Distribution Width 14.1 % (12-17)
[2024-10-04 06:47] LABS: Calcium 8.9 mg/dL (8.6-10.3); Creatinine, Serum 0.82 mg/dL (0.67-1.17); Magnesium 1.8 mg/dL (1.9-2.7); Potassium 4.6 mmol/L (3.5-5.0); eGFR CKD-EPI 102.5 (>60)
[2024-10-04] MEDS: Magnesium Sulfate IV 1GM/100ML 1 GM/100 ML BAG IV ONE (07:51)
[2024-10-05 06:30] LABS: ABS Lymphocytes 1.4 10^3/uL (1.0-4.8); ABS Monocytes 0.5 10^3/uL (0.0-1.1); ABS Neutrophils 6.7 10^3/uL (1.5-7.6); Eosinophil % 0.1 %; Hematocrit 33.8 % (38-53); Hemoglobin 11.9 g/dL (13.2-16.3); Lymphocyte % 15.9 %; Mean Corpuscular Hemoglobin 33.9 pg (27-33); Mean Corpuscular Hgb Conc 35.2 g/dL (31-36); Mean Corpuscular Volume 96.5 fL (80-97); Mean Platelet Volume 7.8 fL (7.5-11.2); Platelet Count 392 10^3/uL (150-450); Red Blood Count 3.51 10^6/uL (4.06-5.63); White Blood Count 8.6 10^3/uL (3.6-10.2)
[2024-10-05 06:48] LABS: Calcium 9.1 mg/dL (8.6-10.3); Creatinine, Serum 0.68 mg/dL (0.67-1.17); Magnesium 1.5 mg/dL (1.9-2.7); Potassium 4.3 mmol/L (3.5-5.0); eGFR CKD-EPI 108.4 (>60)
[2024-10-05] MEDS: Magnesium Sulfate 2 gm BAG 2 GM/50 ML BAG IVPB ONE (11:08)
[2024-10-06 06:20] LABS: Hematocrit 35.8 % (38-53); Hemoglobin 12.7 g/dL (13.2-16.3); Mean Corpuscular Hemoglobin 34.4 pg (27-33); Mean Corpuscular Hgb Conc 35.5 g/dL (31-36); Mean Corpuscular Volume 97.1 fL (80-97); Mean Platelet Volume 7.4 fL (7.5-11.2); Platelet Count 438 10^3/uL (150-450); Red Blood Count 3.69 10^6/uL (4.06-5.63); White Blood Count 6.9 10^3/uL (3.6-10.2)
[2024-10-06 06:42] LABS: Calcium 8.7 mg/dL (8.6-10.3); Creatinine, Serum 0.62 mg/dL (0.67-1.17); Magnesium 1.2 mg/dL (1.9-2.7); Potassium 4.6 mmol/L (3.5-5.0); eGFR CKD-EPI 111.5 (>60)
[2024-10-06 07:46] LABS: ABS Lymphocytes 1.6 10^3/uL (1.0-4.8); ABS Monocytes 0.5 10^3/uL (0.0-1.1); ABS Neutrophils 4.7 10^3/uL (1.5-7.6); ABS Nucleated RBC 0.01 10^3/ul; Eosinophil % 0.4 %; Lymphocyte % 23.2 %; Nucleated Red Blood Cells % 0.1 %/100WBC (0.0-0.8)
[2024-10-06] MEDS: Magnesium Sulf 4 GM/100 ML IV 4,000 MG/100 ML BAG IVPB ONE (09:48)
[2024-10-06 14:18] VITALS: BP 162/107
== END 2024-10-06 16:10 | disposition home or self-care (01) | DRG 554 ==
LOC: ED 06:25 → EDHOLD 06:25 → SUATTDRO 14:03 → MED 16:30
PROVIDERS: ADMIT Internal Medicine; ATTEND Hospitalist

== ENCOUNTER 2024-10-28 09:14 | Observation (INO) ==
[2024-10-28] MEDS: Lactated Ringers 1000 ml BAG IV.FLUID IV ONE (10:34)
[2024-10-28] MEDS: methylPREDNISolone SOD SUCC 125 mg 2 ML VIAL IV ONE (10:46)
[2024-10-28 10:49] LABS: ABS Basophils 0.1 10^3/uL (0.0-0.1); ABS Eosinophils 0.3 10^3/uL (0.0-0.5); ABS Lymphocytes 1.5 10^3/uL (1.0-4.8); ABS Neutrophils 7.1 10^3/uL (1.5-7.6); ABS Nucleated RBC 0.01 10^3/ul; Eosinophil % 2.7 %; Hematocrit 38.6 % (38-53); Hemoglobin 13.8 g/dL (13.2-16.3); Lymphocyte % 14.8 %; Mean Corpuscular Hemoglobin 34.5 pg (27-33); Mean Corpuscular Hgb Conc 35.8 g/dL (31-36); Mean Corpuscular Volume 96.3 fL (80-97); Mean Platelet Volume 6.9 fL (7.5-11.2); Nucleated Red Blood Cells % 0.1 %/100WBC (0.0-0.8); Platelet Count 177 10^3/uL (150-450); Red Blood Count 4.01 10^6/uL (4.06-5.63); White Blood Count 10.1 10^3/uL (3.6-10.2)
[2024-10-28 11:16] LABS: Albumin 4.1 g/dL (3.5-5.7); Albumin/Globulin Ratio 1.6 (1-3); C Reactive Protein 216.98 mg/L (<8.01); Calcium 9.6 mg/dL (8.6-10.3); Creatinine, Serum 0.67 mg/dL (0.67-1.17); Globulin 2.6 g/dL (2-4); Magnesium 1.3 mg/dL (1.9-2.7); Phosphorus 2.9 mg/dL (2.5-5.0); Potassium 4.1 mmol/L (3.5-5.0); Total Bilirubin 1.6 mg/dL (0.2-1.0); Total Protein 6.7 g/dL (6.4-8.9); Uric Acid 8.1 mg/dL (4.4-7.6); eGFR CKD-EPI 108.9 (>60)
[2024-10-28 11:59] LABS: Urine Appearance Turbid; Urine Bilirubin 2+ (Negative); Urine Blood Trace (Negative); Urine Glucose Negative (Negative); Urine Ketones 2+ (Negative); Urine Nitrite Negative (Negative); Urine Protein 2+ (>=100 mg/dL) (Negative); Urine Specific Gravity 1.032 (1.002-1.030); Urine Urobilinogen 2+ (Negative)
[2024-10-28 12:08] LABS: Urine Benzodiazepine Screen None Detected (None Detect); Urine Cannabinoids Screen None Detected (None Detect); Urine Opiates Screen None Detected (None Detect)
[2024-10-28 12:09] LABS: Urine Color Amber
[2024-10-28 12:11] LABS: Urine Bacteria 1+ /HPF (Absent); Urine Red Blood Cell 1+(3-5/hpf) /HPF (0-Trace); Urine Squamous Epithelial Cell Present /HPF (Absent); Urine White Blood Cell 3+(>20/hpf) /HPF (0-Trace)
[2024-10-28 12:13] LABS: High Sensitivity Troponin 1 Hr 45 pg/mL (<20)
[2024-10-28] MEDS ORDERED: Nicotine GUM 4MG FRUIT FLAVOR PO PRN (12:18)
[2024-10-28] MEDS: Nicotine PATCH 21 MG/24 HR PATCH TRANSDERM SCH (12:55)
[2024-10-28] MEDS ORDERED: Sulfur Hexaflouride MICROSPHR 25 MG VIAL IV PRN (13:12)
[2024-10-28] MEDS: Magnesium Sulf 4 GM/100 ML IV 4,000 MG/100 ML BAG IVPB ONE (13:24)
[2024-10-28] MEDS: Enoxaparin 40 MG/0.4 ML SYR SUBCUT SCH (20:46)
[2024-10-29 06:51] LABS: ABS Lymphocytes 0.8 10^3/uL (1.0-4.8); Hematocrit 35.5 % (38-53); Hemoglobin 12.6 g/dL (13.2-16.3); Lymphocyte % 8.5 %; Mean Corpuscular Hemoglobin 34.3 pg (27-33); Mean Corpuscular Hgb Conc 35.6 g/dL (31-36); Mean Corpuscular Volume 96.5 fL (80-97); Mean Platelet Volume 7.4 fL (7.5-11.2); Platelet Count 155 10^3/uL (150-450); Red Blood Count 3.68 10^6/uL (4.06-5.63); Red Cell Distribution Width 14.9 % (12-17); White Blood Count 9.8 10^3/uL (3.6-10.2)
[2024-10-29 07:02] LABS: Albumin 3.5 g/dL (3.5-5.7); Albumin/Globulin Ratio 1.5 (1-3); C Reactive Protein 159.68 mg/L (<8.01); Calcium 8.7 mg/dL (8.6-10.3); Creatinine, Serum 0.85 mg/dL (0.67-1.17); Globulin 2.4 g/dL (2-4); Magnesium 1.9 mg/dL (1.9-2.7); Potassium 3.7 mmol/L (3.5-5.0); Total Bilirubin 0.7 mg/dL (0.2-1.0); Total Protein 5.9 g/dL (6.4-8.9); eGFR CKD-EPI 101.4 (>60)
[2024-10-30 15:02] VITALS: BP 144/89
== END 2024-10-30 15:45 | disposition home or self-care (01) ==
LOC: EDHOLD 09:14 → ED 09:14 → MED 11:47
PROVIDERS: ADMIT Student in an Organized Health Care Education/Training Program; ATTEND Student in an Organized Health Care Education/Training Program